=== PATIENT | female | born 1935 | race Caucasian/White ===

== ENCOUNTER 2017-06-03 16:07 | Emergency (ER) | payer MEDICARE, OTHER ==
[~2017-06-03] VITALS: Ht 162.6 cm; Wt 54.8 kg
[~2017-06-03 16:07] MED LIST: FISH1000 PO; TAB-TAB PO
[2017-06-03 16:33] VITALS: BP 134/61; PULSE 90; RESP 16; TEMP 98; O2SAT 96
[2017-06-03] MEDS ORDERED: PENI500T PO (17:42)
[2017-06-03] MEDS ORDERED: MAGICADU2 SWISH-SPIT (17:42)
--- NOTE | 2017-06-03 17:45 | PD ---
HPI Chief Complaint: Oral / Dental Pain or Problem Time Seen by Provider: 17:37 Travel History International Travel<30 days: No Contact w/Intl Traveler<30days: No Traveled to known affect area: No History of Present Illness HPI 81-year-old female presents for evaluation of dental pain. Symptoms started 5 days ago. She reports pain that starts in her right maxillary premolars, aching , constant, worse when chewing, radiates to the right ear. She has been using [id number] topical benzocaine but symptoms persisted which prompted evaluation. Denies cough, congestion, sore throat, fevers or chills. She has no other complaints at this time. PFSH Past Medical History Arthritis: Yes (BACK / NECK PAIN) Asthma: No Atrial Fibrillation: Yes (QUESTIONABLE?) Autoimmune Disease: No Blood Disorders: No Anxiety: Yes Depression: Yes Heart Rhythm Problems: Yes (AF, 2008) Cardiac Catheterization: No Cardiovascular Problems: Yes (MVP) High Cholesterol: No Chemotherapy: No Chest Pain: Yes Congestive Heart Failure: No COPD: No Cerebrovascular Accident: No Diminished Hearing: No Endocrine: No Gastrointestinal Disorders: Yes GERD: No Glaucoma: No Genitourinary: No Headaches: No Hepatitis: No Hiatal Hernia: Yes (DX IN NOVEMBER 2005 PER PT) Hypertension: No Immune Disorder: No Kidney Stones: No Musculoskeletal: Yes (OSTEOARTHRITIS) Neurologic: No Psychiatric: Yes Reproductive: No Respiratory: No Migraines: No Myocardial Infarction: Yes (07/2006) Radiation Therapy: No Renal Failure: No Seizures: No Sickle Cell Disease: No Sleep Apnea: No Thyroid Disease: No Ulcer: No Menopausal: Yes Past Surgical History Abdominal Surgery: No AICD: No Appendectomy: No Arteriovenous Shunt: No Cardiac Surgery: No Cholecystectomy: No Coronary Artery Bypass Graft: No Ear Surgery: No Endocrine Surgery: No Eye Surgery: No Genitourinary Surgery: No Gynecologic Surgery: No Insulin Pump: No Joint Replacement: No Oral Surgery: Yes (TONSILLECTOMY A CHILD) Pacemaker: No Thoracic Surgery: No Tonsillectomy: Yes Social History Alcohol Use: No Tobacco Use: No Substance Use: No Allergies-Medications (Allergen,Severity, Reaction): Coded Allergies: meperidine (Unverified Allergy, Severe, Hives, 06/03/17) HIVES morphine (Unverified Allergy, Severe, Hives, 06/03/17) Reported Meds & Prescriptions Reported Meds & Active Scripts Active Reported Fish Oil 1,000 Mg Cap 1,000 Mg PO DAILY Multivitamin (Multivitamins) 1 Tab Tab 1 Tab PO DAILY Review of Systems General / Constitutional: No: Fever, Chills HENT: Positive: Dental Difficulties Respiratory: No: Cough Physical Exam Narrative GENERAL: Well-developed well-nourished female in no acute distress SKIN: Warm and dry. HEAD: Atraumatic. Normocephalic. EYES: Pupils equal and round. No scleral icterus. No injection or drainage. ENT: No nasal bleeding or discharge. Mucous membranes pink and moist. Right maxillary premolars are decayed and tender to palpation. There is no gingival edema, no facial edema, no sublingual edema, no trismus. NECK: Trachea midline. No JVD. No lymphadenopathy or submandibular edema. CARDIOVASCULAR: Regular rate and rhythm. No murmur appreciated. RESPIRATORY: No accessory muscle use. Clear to auscultation. Breath sounds equal bilaterally. Data Data Last Documented VS Vital Signs Date Time Temp Pulse Resp B/P (MAP) Pulse Ox O2 Delivery O2 Flow Rate FiO2 06/03/17 16:33 98.0 90 16 134/61 (85) 96 MDM Medical Decision Making Medical Screen Exam Complete: Yes Emergency Medical Condition: Yes Medical Record Reviewed: Yes Differential Diagnosis Dental caries, pulpitis, pericoronitis, periodontal abscess, aphthous ulcer Narrative Course The patient has dental caries. She is being discharged with Magic mouthwash and a short course of penicillin. Diagnosis Primary Impression: Dental caries Additional Instructions: Medications prescribed. Follow up with a dentist for definitive therapy. Return for any emergent medical conditions. Med/Other Pt SpecificInfo: Prescription(s) given Scripts Penicillin V Potassium (Penicillin V Potassium) 500 Mg Tab 500 MG PO Q8H for Infection for 7 Days, #21 TAB 0 Refills Prov: Savannah Encinas DO 06/03/17 Cbgbznal-Btmknjyfsmmvavu-Ymgsauxxa Liq (Magic Mouthwash Adult Liq) 120 Ml Susp 10 ML SWISH-SPIT ACHS for Mouth sores, #120 ML 1 Refill Each 5mL contains: Nystatin 200,000units, Diphenhydramine 4.25mg, Viscous Lidocaine 10mg, Tovar syrup 0.8 mL Prov: Savannah Encinas DO 06/03/17 Disposition: 01 DISCHARGE HOME Condition: Stable Cayden Pryor Jun 03, 2017 17:45
[2017-06-03] MEDS ORDERED: HYDR-3516 PO (23:19)
== END 2017-06-03 18:12 | disposition home or self-care (01) ==
LOC: PHEFT 16:07
DX: K02.9 Dental caries, unspecified (principal); M47.9 Spondylosis, unspecified; F32.9 Major depressive disorder, single episode, unspecified; I25.2 Old myocardial infarction
CPT/HCPCS: 99284

== ENCOUNTER 2017-06-03 18:32 | Emergency (ER) | payer MEDICARE ==
[~2017-06-03] VITALS: Ht 162.6 cm; Wt 57.0 kg
[~2017-06-03 18:32] MED LIST changes: +MAGICADU2 SWISH-SPIT; +PENI500T PO
[2017-06-03 18:41] VITALS: BP 115/75; PULSE 91; RESP 16; TEMP 97.6; O2SAT 97
[2017-06-03 20:40] VITALS: BP 135/73; PULSE 78; RESP 16; O2SAT 97
[2017-06-03] MEDS ORDERED: ACETAMINOPHEN/HYDROcodone 325 MG/5 MG TAB PO ONE (20:45)
[2017-06-03] MEDS ORDERED: ONDANSETRON ODT 4 MG TAB PO ONE (20:45)
--- NOTE | 2017-06-03 20:48 | PD ---
HPI Chief Complaint: Musculoskeletal Complaint Time Seen by Provider: 20:41 Travel History International Travel<30 days: No Contact w/Intl Traveler<30days: No Traveled to known affect area: No History of Present Illness HPI 81-year-old female presents for evaluation of lower back/left posterior buttocks pain. For the past few weeks. She reports that symptoms started when she was cleaning her house. The patient was evaluated this evening for evaluation of dental pain. At that time she was not experiencing any back pain. As she was being discharged into the taxi cab she felt increased pain in her lower back and left buttocks region which prompted reevaluation. She thinks that maybe she exacerbated her pain after walking 1 mile from the bus stop. Pain is an aching pain which shoots down to the left foot causing a " pins and needles" type of pain in her left foot. She reports that she has in the past been told that she has "herniated disks." She also has a history of osteoporosis. She does not currently have a primary care physician. One hour ago she took an Advil while in the waiting room. Denies any incontinence of urine or stool. She has no other complaints at this time. PFSH Past Medical History Arthritis: Yes (BACK / NECK PAIN) Asthma: No Atrial Fibrillation: Yes (QUESTIONABLE?) Autoimmune Disease: No Blood Disorders: No Anxiety: Yes Depression: Yes Heart Rhythm Problems: Yes (AF, 2008) Cardiac Catheterization: No Cardiovascular Problems: Yes (MVP) High Cholesterol: No Chemotherapy: No Chest Pain: Yes Congestive Heart Failure: No COPD: No Cerebrovascular Accident: No Diminished Hearing: No Endocrine: No Gastrointestinal Disorders: Yes GERD: No Glaucoma: No Genitourinary: No Headaches: No Hepatitis: No Hiatal Hernia: Yes (DX IN NOVEMBER 2005 PER PT) Hypertension: No Immune Disorder: No Kidney Stones: No Musculoskeletal: Yes (OSTEOARTHRITIS) Neurologic: No Psychiatric: Yes Reproductive: No Respiratory: No Migraines: No Myocardial Infarction: Yes (07/2006) Radiation Therapy: No Renal Failure: No Seizures: No Sickle Cell Disease: No Sleep Apnea: No Thyroid Disease: No Ulcer: No Menopausal: Yes Past Surgical History Abdominal Surgery: No AICD: No Appendectomy: No Arteriovenous Shunt: No Cardiac Surgery: No Cholecystectomy: No Coronary Artery Bypass Graft: No Ear Surgery: No Endocrine Surgery: No Eye Surgery: No Genitourinary Surgery: No Gynecologic Surgery: No Insulin Pump: No Joint Replacement: No Neurologic Surgery: No Oral Surgery: Yes (TONSILLECTOMY A CHILD) Pacemaker: No Thoracic Surgery: No Tonsillectomy: Yes Other Surgery: Yes (TONSILECTOMY AT AGE 12) Social History Alcohol Use: No Tobacco Use: No Substance Use: No Allergies-Medications (Allergen,Severity, Reaction): Coded Allergies: meperidine (Unverified Allergy, Severe, Hives, 06/03/17) HIVES morphine (Unverified Allergy, Severe, Hives, 06/03/17) Reported Meds & Prescriptions Reported Meds & Active Scripts Active Hydrocodone-Acetaminophen 5-325 mg Tab 1 Tab PO Q6H PRN Review of Systems Except as stated in HPI: all other systems reviewed are Neg Physical Exam Narrative GENERAL: Well-developed well-nourished female in no acute distress SKIN: Warm and dry. There is no rash, no bruising or soft tissue swelling. No flank or periumbilical ecchymosis. HEAD: Atraumatic. Normocephalic. EYES: Pupils equal and round. No scleral icterus. No injection or drainage. ENT: No nasal bleeding or discharge. Mucous membranes pink and moist. NECK: Trachea midline. No JVD. CARDIOVASCULAR: Regular rate and rhythm. No murmur appreciated. RESPIRATORY: No accessory muscle use. Clear to auscultation. Breath sounds equal bilaterally. GASTROINTESTINAL: Abdomen soft, non-tender, nondistended. Hepatic and splenic margins not palpable. MUSCULOSKELETAL: No obvious deformities. The patient has pain with attempted sitting up in bed from a lying down position. She has tenderness to palpation along the lumbar midline spine and left buttocks region. 2+ dorsalis pedis pulses bilaterally. There is no lower extremity edema. NEUROLOGICAL: Awake and alert. No obvious cranial nerve deficits. Motor grossly within normal limits. Normal speech. PSYCHIATRIC: Appropriate mood and affect; insight and judgment normal. Data Data Last Documented VS Vital Signs Date Time Temp Pulse Resp B/P (MAP) Pulse Ox O2 Delivery O2 Flow Rate FiO2 06/03/17 23:39 76 16 120/80 (93) 99 06/03/17 20:40 Room Air 06/03/17 18:41 97.6 Orders Orders Spine, Lumbar - Ltd (Ap & Lat) (06/03/17 ) Hip, Uni(Ap&Lat) W Ap Pelvis (06/03/17 ) Acetamin-Hydrocod 325-5 Mg ([place] 5-325 (06/03/17 20:45) Ondansetron Odt (Zofran Odt) (06/03/17 20:45) Ed Discharge Order (06/03/17 23:19) [facility] Medical Decision Making Medical Screen Exam Complete: Yes Emergency Medical Condition: Yes Medical Record Reviewed: Yes Differential Diagnosis Herniated nucleus pulposis, compression fracture, degenerative disc disease, spinal stenosis, muscle strain Narrative Course 81-year-old female who is been experiencing pain in her lower back and left buttocks radiating down the left leg for the past 2 weeks. The pain was worse today after walking 1 mile from a bus stop. Given her age, history of osteoporosis, x-ray imaging of the lumbar spine is in order to rule out compression deformity. X-ray of the left hip/pelvis is also been ordered. The patient reports allergies to morphine however she has had Lortab in the past with no allergic reaction. She will be given Lortab and Zofran here. Scripts Hydrocodone-Acetaminophen (Hydrocodone-Acetaminophen) 5-325 mg Tab 1 TAB PO Q6H Y for PAIN, #7 TAB 0 Refills Prov: Savannah Encinas 06/03/17 Cayden Pryor Jun 03, 2017 20:48
--- NOTE | 2017-06-03 21:49 | RADRPT ---
EXAM DATE/TIME: 06/03/2017 21:06 [facility] COMPARISON: SPINE LUMBAR LTD (AP & LAT), June 07, 2010, 19:18. INDICATIONS : Lower back pain, no known trauma. MEDICAL HISTORY : None. SURGICAL HISTORY : None. ENCOUNTER: Initial ACUITY: 1 day PAIN SCORE: 8/10 LOCATION: lumbar spine. FINDINGS: Degenerative changes and scoliosis of the lumbar spine are noted. There is severe disc space narrowin g at L5-S1. There is no acute compression fracture or spondylolisthesis. No spondylolysis is noted. CONCLUSION: No acute compression fracture or spondylolisthesis. Degenerative changes and scoliosi s of the lumbar spine. Severe degenerative disc disease at L5-S1. Sadiq Sánchez MD on June 03, 2017 at 21:45 Board Certified Radiologist. This report was verified electronically.
--- NOTE | 2017-06-03 21:50 | RADRPT ---
EXAM DATE/TIME: 06/03/2017 21:06 [facility] COMPARISON: No previous studies available for comparison. INDICATIONS : Left buttock pain radiating down the left leg. No known trauma. MEDICAL HISTORY : None. SURGICAL HISTORY : None. ENCOUNTER: Initial ACUITY: 1 day PAIN SCORE: 8/10 LOCATION: Left hip FINDINGS: Examination of the left hip was performed with AP Pelvis. The primary and secondary trabecular patte rn of the femoral neck is intact. The hip joint is of normal width without significant sclerosis or bony hypertrophy. The acetabulum is grossly intact. CONCLUSION: No acute disease. Sadiq Sánchez MD on June 03, 2017 at 21:47 Board Certified Radiologist. This report was verified electronically.
[2017-06-03] MEDS ORDERED: HYDR-3516 PO (23:19)
--- NOTE | 2017-06-03 23:19 | PD ---
Physical Exam Narrative I, Dr. Encinas, have reviewed the advance practice practitioner's documentation and am in agreement, met with the patient face to face, made the diagnosis, and the medical decision making was done by me. *My assessment and Findings: Sciatica vs. musculoskeletal pain 81yo F with left back pain that radiates down left buttocks and posterior thigh. Impression is more sciatica. Denies any fever, trauma, focal weakness or numbness. Xray left hip negative for acute disease. Xray LS showed no compression fracture. Degenerative changes. Pt given lortab which helped and requesting lortab. Return precautions given. Data Data Last Documented VS Vital Signs Date Time Temp Pulse Resp B/P (MAP) Pulse Ox O2 Delivery O2 Flow Rate FiO2 06/03/17 18:41 97.6 91 16 115/75 (88) 97 Orders Orders Spine, Lumbar - Ltd (Ap & Lat) (06/03/17 ) Hip, Uni(Ap&Lat) W Ap Pelvis (06/03/17 ) Acetamin-Hydrocod 325-5 Mg ([place] 5-325 (06/03/17 20:45) Ondansetron Odt (Zofran Odt) (06/03/17 20:45) MDM Supervised Visit with [facility]: Yes Diagnosis Primary Impression: Sciatic leg pain Patient Instructions: General Instructions Departure Forms: Tests/Procedures Additional Instruction: Please follow up with your primary care physician in 2-3 days. Return to the ED if symptoms worsen. Med/Other Pt SpecificInfo: Prescription(s) given Scripts Hydrocodone-Acetaminophen (Hydrocodone-Acetaminophen) 5-325 mg Tab 1 TAB PO Q6H Y for PAIN, #7 TAB 0 Refills Prov: Savannah Encinas DO 06/03/17 Disposition: 01 DISCHARGE HOME Condition: Stable Savannah Encinas DO Jun 03, 2017 23:19
[2017-06-03 23:39] VITALS: BP 120/80
== END 2017-06-03 23:39 | disposition home or self-care (01) ==
LOC: PHED 18:32 → PHEFT 23:39
DX: M54.42 Lumbago with sciatica, left side (principal); F32.9 Major depressive disorder, single episode, unspecified; I25.2 Old myocardial infarction; M51.37 Other intervertebral disc degeneration, lumbosacral region
CPT/HCPCS: 72100; 73502; 99284

== ENCOUNTER 2017-07-27 12:49 | Emergency (ER) | payer MEDICARE, OTHER ==
[~2017-07-27] VITALS: Ht 162.6 cm; Wt 56.0 kg
[~2017-07-27 12:49] MED LIST changes: -FISH1000 PO; +HYDR-3516 PO; -MAGICADU2 SWISH-SPIT; -PENI500T PO; -TAB-TAB PO
[2017-07-27 12:55] VITALS: BP 123/61; PULSE 84; RESP 18; TEMP 98.1; O2SAT 96
[2017-07-27] MEDS ORDERED: IBUP200C PO (14:10)
[2017-07-27] MEDS ORDERED: BACT800T5 PO (14:54)
[2017-07-27] MEDS ORDERED: CEPH-460 PO (14:54)
--- NOTE | 2017-07-27 14:54 | PD ---
HPI Chief Complaint: Skin Problem Time Seen by Provider: 14:38 Travel History International Travel<30 days: No Contact w/Intl Traveler<30days: No Traveled to known affect area: No History of Present Illness HPI This is an 81-year-old female here with possible skin infection to her left shoulder 3 days. She reports the area was possible insect bite which is now infected started draining small amount clear yellow fluid this morning. No fever chills. Symptoms severity is mild. No aggravating or alleviating factors. PFSH Past Medical History Arthritis: Yes (BACK / NECK PAIN) Asthma: No Atrial Fibrillation: Yes (QUESTIONABLE?) Autoimmune Disease: No Blood Disorders: No Anxiety: Yes Depression: Yes Heart Rhythm Problems: Yes (AF, 2008) Cardiac Catheterization: No Cardiovascular Problems: Yes (MVP) High Cholesterol: No Chemotherapy: No Chest Pain: Yes Congestive Heart Failure: No COPD: No Cerebrovascular Accident: No Diminished Hearing: No Endocrine: No Gastrointestinal Disorders: Yes GERD: No Glaucoma: No Genitourinary: No Headaches: No Hepatitis: No Hiatal Hernia: Yes (DX IN NOVEMBER 2005 PER PT) Hypertension: No Immune Disorder: No Kidney Stones: No Musculoskeletal: Yes (OSTEOARTHRITIS) Neurologic: No Psychiatric: Yes Reproductive: No Respiratory: No Immunizations Current: Yes Migraines: No Myocardial Infarction: Yes (07/2006) Radiation Therapy: No Renal Failure: No Seizures: No Sickle Cell Disease: No Sleep Apnea: No Thyroid Disease: No Ulcer: No Tetanus Vaccination: > 5 Years Influenza Vaccination: No Menopausal: Yes Past Surgical History Abdominal Surgery: No AICD: No Appendectomy: No Arteriovenous Shunt: No Cardiac Surgery: No Cholecystectomy: No Coronary Artery Bypass Graft: No Ear Surgery: No Endocrine Surgery: No Eye Surgery: No Genitourinary Surgery: No Gynecologic Surgery: No Insulin Pump: No Joint Replacement: No Neurologic Surgery: No Oral Surgery: Yes (TONSILLECTOMY A CHILD) Pacemaker: No Thoracic Surgery: No Tonsillectomy: Yes Other Surgery: Yes (TONSILECTOMY AT AGE 12) Social History Alcohol Use: No Tobacco Use: No Substance Use: No Allergies-Medications (Allergen,Severity, Reaction): Coded Allergies: meperidine (Unverified Allergy, Severe, Hives, 07/27/17) HIVES morphine (Unverified Allergy, Severe, Hives, 07/27/17) Reported Meds & Prescriptions Reported Meds & Active Scripts Active Reported Ibuprofen 200 Mg Cap 200 Mg PO Q6H PRN Review of Systems Except as stated in HPI: all other systems reviewed are Neg General / Constitutional: No: Fever Physical Exam Narrative GENERAL: Alert and well-appearing 81-year-old female SKIN: Warm and dry. 2 cm diameter area of erythema with central scab. Small amount of thick yellow drainage. No fluctuance or induration. HEAD: Normocephalic. EYES: No injection or drainage. NECK: Supple CARDIOVASCULAR: Regular rate and rhythm RESPIRATORY: Breath sounds equal bilaterally. No accessory muscle use. MUSCULOSKELETAL: No cyanosis, or edema. No bony tenderness. Data Data Last Documented VS Vital Signs Date Time Temp Pulse Resp B/P (MAP) Pulse Ox O2 Delivery O2 Flow Rate FiO2 07/27/17 14:11 (81) 07/27/17 12:55 98.1 84 18 96 Room Air MDM Medical Decision Making Medical Screen Exam Complete: Yes Emergency Medical Condition: Yes Differential Diagnosis Wound infection, abscess, cellulitis Narrative Course 81-year-old female here with wound infection to her left shoulder at the site of an insect bite. She is nontoxic appearing. No signs are stable. She'll be treated with Bactrim and Keflex. Diagnosis Primary Impression: Wound infection Referrals: Primary Care Physician Additional Instructions: Antibiotics as directed. Follow-up the primary doctor. Return if he developed new or worsening symptoms Scripts Cephalexin (Keflex) 500 Mg Capsule 500 MG PO Q6H for Infection for 10 Days, #40 CAP 0 Refills Prov: Stephanie Santos 07/27/17 Sulfamethoxazole-Trimethoprim (Bactrim DS) 800-160 Mg Tab 1 TAB PO BID for Infection, #20 TAB 0 Refills Prov: Stephanie Santos 07/27/17 Disposition: DISCHARGE HOME Condition: Stable Stephanie Santos Jul 27, 2017 14:54
== END 2017-07-27 15:01 | disposition home or self-care (01) ==
LOC: PHED 12:49 → PHEFT 15:01
DX: L08.9 Local infection of the skin and subcutaneous tissue, unspecified (principal)
CPT/HCPCS: 99283